=== PATIENT | male | born 1965 | race Caucasian/White ===

== ENCOUNTER 2016-09-30 12:35 | Emergency (ER) | payer BC ==
[~2016-09-30 12:35] MED LIST: ACET500CAP PO; ADVIL PO; ANDROGEL5 TOP; ASA5GR PO; ATEN25 PO; CALTRA600D PO; CLARIT10 PO; EXCEDRIN EXTRA1 EACH PO; FLOMAX4 PO; HYTONE2.5 % TOP; KLONO1 PO; LEXAPRO20 PO; LORTAB 5 PO; MEDROLPAK4 PO; MOBIC15 MG PO; MULTIPLE VIT PO; NEUR300 PO; NEXIUM20 M1 PO; NEXIUM40 PO; NORCO1 TAB PO; NORV25 PO; PCET PO; THERGRANM PO; V5 PO; X5 PO; XANAX1 MG PO
[2016-09-30 13:01] LABS: BASOPHILS 0.7 %; BASOPHILS ABSOLUTE 0.03 10/3/uL (0.0-0.16); EOSINOPHILS 1.2 %; EOSINOPHILS ABSOLUTE 0.05 10/3/uL (0.0-0.53); ER CBC TAT 0 Hrs 05 Mins; HEMATOCRIT 44.6 % (40.0-51.0); HEMOGLOBIN 15.8 g/dL (13.6-17.8); IMMATURE GRANULOCYTES 0.2 %; IMMATURE GRANULOCYTES ABSOLUTE 0.01 10/3/uL (0.0-0.11); LYMPHOCYTES 33.1 %; LYMPHOCYTES ABSOLUTE 1.43 10/3/uL (0.67-4.30); MEAN CORPUSCULAR HEMOGLOB 31.6 pg (26.0-34.0); MEAN CORPUSCULAR VOLUME 89.2 fL (80-100); MEAN PLATELET VOLUME 9.9 fL (9.2-13.0); MONOCYTES ABSOLUTE 0.26 10/3/uL (0.21-1.20); NEUTROPHILS 58.8 %; NEUTROPHILS ABSOLUTE 2.54 10/3/uL (2.02-8.40); PLATELET COUNT 171 10/3/uL (150-400); RBC DISTRIBUTION WIDTH 12.9 % (12.0-16.0); WHITE BLOOD CELLS 4.3 10/3/uL (4.5-10.5)
[2016-09-30 13:04] LABS: MANUAL DIFF NO %; MEAN CORPUS HGB CONC 35.4 g/dL (32.0-36.0)
[2016-09-30 13:07] LABS: ASCORBIC ACID (UR NOT ORDER) 40 (NEG); BILIRUBIN, URINE NEGATIVE (NEG); ER URINALYSIS TAT 0 Hrs 11 Mins; KETONE, URINE NEGATIVE (NEG); LEUKOCYTE ESTERASE(NOT OR NEG (NEG); NITRITE (URINE) NEG (NEG); WBC (NOT ORDERED) (RFLEX) 1 (0-5)
[2016-09-30 13:13] LABS: BUN (BLOOD UREA NITROGEN) 7 MG/DL (6-23); CALCIUM, SERUM 8.4 MG/DL (8.5-10.4); CHLORIDE, SERUM 111 MMOL/L (96-112); CO2 (CARBON DIOXIDE) 27 MMOL/L (24-34); CREATININE 1.07 MG/DL (0.70-1.30); GFR AFRICAN AMERICAN 94 ML/MIN (>=60); GFR NON AFRICAN AMERICAN 81 ML/MIN (>=60); GLUCOSE, SERUM 109 MG/DL (60-99); POTASSIUM, SERUM 3.6 MMOL/L (3.5-5.3); SODIUM, SERUM 145 MMOL/L (135-148)
[2016-09-30 14:52] LABS: ALBUMIN 4.4 G/DL (3.5-5.0); SGPT(ALT) 34 U/L (5-65); TOTAL BILIRUBIN 0.5 MG/DL (0-1.2)
[2016-09-30 14:53] LABS: ALKALINE PHOSPHATASE 60 U/L (45-117); DIRECT BILIRUBIN 0.1 MG/DL (0.0-0.4); INDIRECT BILIRUBIN(NOT ORDER) 0.4 MG/DL (0.1-0.9)
[2016-09-30 14:54] LABS: SGOT(AST) 30 U/L (5-40)
[2016-12-18] MEDS ORDERED: ZANAFLEX 4 MG TA4 MG PO (12:49)
[2016-12-18] MEDS ORDERED: CLOMID50 MG PO (12:49)
[2016-12-18] MEDS ORDERED: NEUR300 PO (12:50)
[2016-12-18] MEDS ORDERED: NORCO1 TAB PO (12:50)
== END 2016-09-30 17:16 | disposition home or self-care (01) ==
LOC: ER 12:35
PROVIDERS: Emergency Medicine
DX: R10.9 Unspecified abdominal pain (principal); I10 Essential (primary) hypertension; Z88.1 Allergy status to other antibiotic agents; Z79.899 Other long term (current) drug therapy; Z79.82 Long term (current) use of aspirin
CPT/HCPCS: 74176; 80048; 80076; 81001; 85025; 96374; 99284; J2405